=== PATIENT | male | born 1980 | race Caucasian/White ===

== ENCOUNTER 2017-11-30 02:13 | Emergency (ER) | payer OTHER ==
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
[2017-11-30 09:11] VITALS: BP 117/67
--- NOTE | 2017-11-30 10:19 | ED ---
Tano Fowler Simon, scribed for Flash Luther MD on 11/30/17 at 0823 . Progress - Progress Note Progress Note: This patient was signed out from Dr. Alvarez, pending disposition, awaiting a visit from his social security benefits interviewer. The patients condition is stable and will be discharged to home with Dx of weakness. Course/Dx - Course Course Of Treatment: Mr. Thomas was seen by the Geophysical Party Chief and the recommendation was to D/C him to go to the [facility] today for emergency placement. He was stable. - Diagnoses Provider Diagnoses: Weakness Discharge - Sign-Out/Discharge Documenting (check all that apply): Discharge/Admit/Transfer - Discharge Plan Condition: Stable Disposition: HOME Patient Education Materials: Weakness (ED) Referrals: Carlos May MD [Primary Care Provider] - Additional Instructions: Go to older adult social work specialist today to arrange for emergency senior care. RETURN TO EMERGENCY DEPARTMENT FOR CHANGING OR WORSENING SYMPTOMS. - Billing Disposition and Condition Condition: STABLE Disposition: Home The documentation as recorded by the Tano land Simon accurately reflects the service I personally performed and the decisions made by me, Flash Luther MD.
== END 2017-11-30 09:10 | disposition home or self-care (01) ==
LOC: ED 02:13
DX: R53.1 Weakness (principal); F17.200 Nicotine dependence, unspecified, uncomplicated; F41.9 Anxiety disorder, unspecified; H54.62 Unqualified visual loss, left eye, normal vision right eye; Z59.0 Homelessness; Z79.899 Other long term (current) drug therapy
CPT/HCPCS: 99282

== ENCOUNTER 2017-11-30 16:05 | Emergency (ER) | payer OTHER ==
[2017-11-30 18:15] LABS: ABS Basophils 0.1 10^3/ul (0-0.2); ABS Eosinophils 0.2 10^3/ul (0-0.6); ABS Lymphocytes 1.4 10^3/ul (1.0-4.8); ABS Monocytes 0.6 10^3/ul (0-0.8); ABS Nucleated RBC 0 10^3/ul; Eosinophil % 1.9 % (0-6); Hematocrit 39 % (42-52); Hemoglobin 13.2 g/dl (14.0-18.0); Lymphocyte % 16.9 % (25-47); Mean Corpuscular HGB Conc 34 g/dl (31-36); Mean Corpuscular Hemoglobin 30 pg (27-31); Mean Corpuscular Volume 88 fL (80-94); Mean Platelet Volume 7.6 um3 (7.4-10.4); Nucleated Red Blood Cells % 0.2; Platelet Count 225 10^3/ul (150-450); Red Blood Count 4.44 10^6/ul (4.00-5.40); Red Cell Distribution Width 13 % (10.5-15); White Blood Count 8.3 10^3/ul (3.5-10.8)
[2017-11-30 18:20] LABS: Urine Appearance Clear; Urine Blood Negative (Negative); Urine Color Yellow; Urine Ketones Trace (Negative); Urine Protein Negative (Negative); Urine Urobilinogen Negative (Negative)
[2017-11-30 18:32] LABS: EGFR Non-African American 120.4 (>60)
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
[2017-11-30 22:19] VITALS: BP 101/58
--- NOTE | 2017-12-01 19:47 | ED ---
Karyn Fowler Elizabeth, scribed for Gerald Tapia MD on 11/30/17 at 2208 . Progress - Progress Note Progress Note: Patient was signed out to Dr. Tapia from Dr. Luther upon physician shift change pending medical clearance. Re-Evaluation - Re-Evaluation First Eval Change: Improved Comment: Pt now more awake and alert; Pt following commands appropriately. Pt with no drowsiness or attention deficits. Pt ambulatory in the ED without diffiuclty or ataxia. Pt states that his care plan was for him to stay with a friend, which he has arranged, until other temporary/emergent housing is completed. Course/Dx - Course Course Of Treatment: Mr. Thomas presented by EMS. He was at a probation meeting and kept falling asleep. He was very sleepy he was arousable essentially a mild stupor. He is currently getting a workup he does take Opana, morphine and a benzodiazepine routinely. Patient has been medically cleared and will be discharged to stay with a friend. Patient is agreeable with this plan. - Diagnoses Provider Diagnoses: Accidental medication overdose Discharge - Sign-Out/Discharge Documenting (check all that apply): Discharge/Admit/Transfer Receiving patient FROM: Flash Luther - Discharge Plan Condition: Stable Disposition: HOME Discharge Disposition Comment: Received sign out from Dr. Luther. Discharge patient home Patient Education Materials: Adult Overdose (ED) Referrals: Carlos May MD [Primary Care Provider] - 2 Days Additional Instructions: Follow up with your primary care physician in 2-3 days. Return to the emergency department with any new or worsening symptoms. - Billing Disposition and Condition Condition: STABLE Disposition: Home The documentation as recorded by the Karyn land Elizabeth accurately reflects the service I personally performed and the decisions made by , Gerald Tapia MD.
== END 2017-11-30 22:20 | disposition home or self-care (01) ==
LOC: ED 16:05
DX: T50.901A Poisoning by unspecified drugs, medicaments and biological substances, accidental (unintentional), initial encounter (principal); R40.1 Stupor; Y92.9 Unspecified place or not applicable; F17.210 Nicotine dependence, cigarettes, uncomplicated; R47.81 Slurred speech
CPT/HCPCS: 36415; 80053; 80307; 80320; 80329; 81003; 83605; 85025; 93005; 99283; G0480

== ENCOUNTER 2018-01-29 16:49 | Emergency (ER) | payer OTHER ==
[2018-01-29 17:06] VITALS: BP 118/89
[2018-01-29] MEDS ORDERED: Ketorolac INJ* 60 MG/2 ML VIAL IM ONE (20:25)
[2018-01-29] MEDS ORDERED: oxyCODONE/Acetamin 5/325 MG* TAB PO ONE (20:25)
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
[2018-01-29] MEDS ORDERED: Ciprofloxacin 0.3% OPTH.SOL* 2.5 ML BTL LEFT EYE SCH (22:00)
== END 2018-01-29 21:13 | disposition home or self-care (01) ==
LOC: ED 16:49
DX: G89.29 Other chronic pain (principal); M79.605 Pain in left leg; H10.9 Unspecified conjunctivitis; F17.200 Nicotine dependence, unspecified, uncomplicated; Z97.0 Presence of artificial eye
CPT/HCPCS: 96372; 99282; A9270-GY; J1885

== ENCOUNTER 2018-02-21 08:55 | Emergency (ER) | payer OTHER ==
[2018-02-21] MEDS ORDERED: NS 0.9% 1000 ML* 1,000 ML IV ONE (09:12)
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
[2018-02-21 09:52] LABS: ABS Basophils 0.1 10^3/ul (0-0.2); ABS Eosinophils 0.2 10^3/ul (0-0.6); ABS Lymphocytes 2.2 10^3/ul (1.0-4.8); ABS Monocytes 0.8 10^3/ul (0-0.8); ABS Neutrophils 5.4 10^3/ul (1.5-7.7); ABS Nucleated RBC 0 10^3/ul; Eosinophil % 1.7 % (0-6); Hematocrit 42 % (42-52); Hemoglobin 14.2 g/dl (14.0-18.0); Lymphocyte % 24.9 % (25-47); Mean Corpuscular HGB Conc 34 g/dl (31-36); Mean Corpuscular Hemoglobin 29 pg (27-31); Mean Corpuscular Volume 87 fL (80-94); Nucleated Red Blood Cells % 0; Platelet Count 428 10^3/ul (150-450); Red Blood Count 4.83 10^6/ul (4.00-5.40); Red Cell Distribution Width 15 % (10.5-15); White Blood Count 8.7 10^3/ul (3.5-10.8)
[2018-02-21 10:09] LABS: EGFR Non-African American 141.5 (>60)
[2018-02-21] MEDS ORDERED: Magnesium Oxide TAB* 400 MG PO ONE (10:29)
[2018-02-21 10:45] LABS: Urine Appearance Clear; Urine Blood Negative (Negative); Urine Color Yellow; Urine Ketones Negative (Negative); Urine Protein Negative (Negative); Urine Specific Gravity 1.024 (1.010-1.030); Urine Urobilinogen Negative (Negative)
--- NOTE | 2018-02-21 12:37 | RAD ---
HISTORY: Syncope COMPARISONS: April 12, 2015 , MRI dated March 06, 2015 TECHNIQUE: Multiple contiguous axial CT scans were obtained of the head without intravenous contrast. FINDINGS: HEMORRHAGE/INFARCT: There is no hemorrhage or acute infarct. MASSES/SHIFT: There is no mass or shift. EXTRA-AXIAL SPACES: There are no extra-axial fluid collections. SULCI AND VENTRICLES: The sulci and ventricles are normal in size and position for the patient's stated age. 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 This corresponds to the finding noted on previous MRI. BRAINSTEM: There are no focal parenchymal abnormalities. CEREBELLUM: There are no focal parenchymal abnormalities. VESSELS: The vessels are grossly normal. PARANASAL SINUSES: The paranasal sinuses are clear. ORBITS: The orbits are unremarkable. BONES AND SOFT TISSUE: No bone or soft tissue abnormalities are noted. OTHER: None IMPRESSION: NO ACUTE INTRACRANIAL PATHOLOGY. STABLE RIGHT FRONTAL ENCEPHALOMALACIA
--- NOTE | 2018-02-21 13:00 | RAD ---
Indication: Neck injury, syncope. CT of the cervical spine was obtained in the axial plane. Sagittal and coronal reconstructed images were obtained. The skull base demonstrates no evidence of fracture. Mastoid air cells are well aerated. The atlantoaxial joint is unremarkable. The vertebral bodies appear normal in height. Disc spaces all well-preserved. No focal protrusion is identified. The inferior thyroid lobes are unremarkable. No fracture is noted. IMPRESSION: No fracture of the cervical spine is noted.
[2018-02-21 13:27] VITALS: BP 127/99
--- NOTE | 2018-02-21 13:38 | RAD ---
HISTORY: Syncope COMPARISONS: March 30, 2016 VIEWS: 5: Frontal dual-energy and lateral views of the chest. FINDINGS: CARDIOMEDIASTINAL SILHOUETTE: The cardiomediastinal silhouette is normal. CALIXTO: The calixto are normal. PLEURA: The costophrenic angles are sharp. No pleural abnormalities are noted. LUNG PARENCHYMA: There is hyperinflation with flattening of the diaphragm and expansion of the AP diameter of the chest. ABDOMEN: The upper abdomen is clear. There is no subphrenic gas. BONES AND SOFT TISSUES: No bone or soft tissue abnormalities are noted. OTHER: None. IMPRESSION: HYPERINFLATION. NO ACTIVE CARDIOPULMONARY DISEASE.
== END 2018-02-21 13:25 | disposition home or self-care (01) ==
LOC: ED 08:55
DX: R55 Syncope and collapse (principal); R51 Headache; M54.2 Cervicalgia; F17.210 Nicotine dependence, cigarettes, uncomplicated
CPT/HCPCS: 36415; 70450; 71046; 72125; 80053; 80307; 80320; 81003; 83605; 83735; 83880; 84443; 84484; 85025; 93005; 96374; 99283; G0480

== ENCOUNTER 2018-03-27 18:23 | Emergency (ER) | payer OTHER ==
[2018-03-27 18:54] VITALS: BP 109/84
== END 2018-03-27 19:46 | disposition left against medical advice (07) ==
LOC: ED 18:23
DX: R41.82 Altered mental status, unspecified (principal); Z53.21 Procedure and treatment not carried out due to patient leaving prior to being seen by health care provider

== ENCOUNTER 2018-03-28 18:06 | Emergency (ER) | payer OTHER ==
[2018-03-28 18:15] VITALS: BP 102/73
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
== END 2018-03-28 19:36 | disposition home or self-care (01) ==
LOC: UCEAST 18:06
DX: F41.9 Anxiety disorder, unspecified (principal); Z76.0 Encounter for issue of repeat prescription; Z91.013 Allergy to seafood; F17.210 Nicotine dependence, cigarettes, uncomplicated
CPT/HCPCS: 99211; G0463

== ENCOUNTER 2018-03-28 21:56 | Emergency (ER) | payer OTHER ==
[2018-03-29] MEDS ORDERED: oxyCODONE TAB* 5 MG TAB PO ONE (01:53)
[2018-03-29] MEDS ORDERED: ALPRAZolam TAB* 0.5 MG PO ONE (01:53)
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
[2018-03-29 02:41] VITALS: BP 119/97
== END 2018-03-29 02:41 | disposition home or self-care (01) ==
LOC: ED 21:56
DX: Z76.0 Encounter for issue of repeat prescription (principal); F17.210 Nicotine dependence, cigarettes, uncomplicated; F41.9 Anxiety disorder, unspecified
CPT/HCPCS: 99282; A9270-GY

== ENCOUNTER 2018-06-17 00:30 | Inpatient (IN) | payer OTHER ==
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
[2018-06-17 01:07] LABS: ABS Basophils 0.1 10^3/ul (0-0.2); ABS Eosinophils 0.1 10^3/ul (0-0.6); ABS Lymphocytes 1.7 10^3/ul (1.0-4.8); ABS Monocytes 0.5 10^3/ul (0-0.8); ABS Neutrophils 6.2 10^3/ul (1.5-7.7); ABS Nucleated RBC 0 10^3/ul; Hematocrit 43 % (42-52); Hemoglobin 14.4 g/dl (14.0-18.0); Lymphocyte % 19.7 %; Mean Corpuscular HGB Conc 34 g/dl (31-36); Mean Corpuscular Hemoglobin 29 pg (27-31); Mean Corpuscular Volume 88 fL (80-94); Mean Platelet Volume 7.4 fL (7.4-10.4); Nucleated Red Blood Cells % 0; Platelet Count 316 10^3/ul (150-450); Red Cell Distribution Width 15 % (10.5-15); White Blood Count 8.5 10^3/ul (3.5-10.8)
[2018-06-17 01:23] LABS: ALT 8 U/L (7-52); AST 15 U/L (13-39); Albumin 4.2 g/dL (3.2-5.2); Albumin/Globulin Ratio 1.3 (1-3); Alkaline Phosphatase 44 U/L (34-104); Anion Gap 6 mmol/L (2-11); BUN/Creatinine Ratio 16.1 (8-20); Blood Urea Nitrogen 10 mg/dL (6-24); CO2 Carbon Dioxide 27 mmol/L (22-32); Calcium 9.5 mg/dL (8.6-10.3); Chloride 108 mmol/L (101-111); EGFR Non-African American 146.8 (>60); Globulin 3.3 g/dL (2-4); Glucose 121 mg/dL (70-100); Potassium 3.4 mmol/L (3.5-5.0); Sodium 141 mmol/L (135-145); Total Protein 7.5 g/dL (6.4-8.9)
[2018-06-17 01:31] LABS: Alcohol < 10 mg/dL (<10); Salicylate < 2.50 mg/dL (<30)
[2018-06-17 01:42] LABS: Urine Appearance Cloudy; Urine Bilirubin Negative (Negative); Urine Blood Negative (Negative); Urine Color Amber; Urine Glucose Negative (Negative); Urine Ketones Negative (Negative); Urine Nitrite Negative (Negative); Urine Protein Negative (Negative); Urine Specific Gravity 1.025 (1.010-1.030); Urine Urobilinogen Positive (Negative)
[2018-06-17 01:55] LABS: Acetaminophen < 15 mcg/mL
[2018-06-17 01:57] LABS: Barbiturates Urine Screen None Detected (None Detect); Benzodiazepine Urine Screen None Detected (None Detect); Urine Cannabinoids Screen None Detected (None Detect)
[2018-06-17] MEDS ORDERED: Mouth Piece, Nicotine* 1 EACH CARTRIDGE INH ONE (02:00)
[2018-06-17] MEDS: Nicotine Inhaler* 10 MG AMP INH PRN ×3 (02:07→21:47)
[2018-06-17] MEDS: LORazepam TAB(*) 1 MG PO PRN ×4 (02:07→17:47)
[2018-06-17] MEDS ORDERED: oxyCODONE TAB* 5 MG TAB PO ONE (02:14)
[2018-06-17] MEDS ORDERED: Nicotine GUM* 2 MG PO PRN (07:42)
[2018-06-17] MEDS ORDERED: Al Hydrox/Mg Hydrox/Simet LIQ* 30 ML UDC PO PRN (07:42)
[2018-06-17] MEDS: Vitamin THERAPEUTIC TAB PO SCH (08:02)
[2018-06-17] MEDS: clonazePAM TAB(*) 0.5 MG PO SCH ×2 (08:02→20:53)
[2018-06-17] MEDS: OXYMORPHONE 20 MG PO SCH ×2 (10:00→20:53)
[2018-06-17] MEDS: Oxymorphone IR (NF) 5 MG TAB PO SCH ×3 (10:00→20:53)
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
[2018-06-17] MEDS: DULoxetine DR CAP* 30 MG CAP.DR PO SCH (21:31)
[2018-06-18 07:27] LABS: HDL Cholesterol 46.3 mg/dL
[2018-06-18] MEDS ORDERED: Mouth Piece, Nicotine* 1 EACH CARTRIDGE ONE (07:44)
[2018-06-18] MEDS: Nicotine Inhaler* 10 MG AMP INH PRN ×3 (07:45→20:32)
[2018-06-18] MEDS: DULoxetine DR CAP* 30 MG CAP.DR PO SCH (08:58)
[2018-06-18] MEDS: clonazePAM TAB(*) 0.5 MG PO SCH ×2 (08:58→20:30)
[2018-06-18] MEDS: OXYMORPHONE 20 MG PO SCH ×2 (08:58→20:30)
[2018-06-18] MEDS: Vitamin THERAPEUTIC TAB PO SCH (08:59)
--- NOTE | 2018-06-18 17:15 | PN ---
Subjective - Subjective Date of Service: 06/18/18 Service Type: 56397 Hosp care 25 min moderate complexity Subjective: Mr Thomas complains today of increased pain and anxiety after replacement ment of Xanax 1 mg 3x/d with Klonopin 0.5 mg 2x/d, and reduction of oxymorphone dose from 10 mg 3x/d of IR, 20 mg 2x/d of ER. He reports continued depressed mood, but no longer plans to kill himself. He is pleasant and well related. Objective - Appearance Appearance: Thin Framed Dysmorphic Features: Yes Hygiene: Normal Grooming: Fairly Well Kept - Behavior Psychomotor Activities: Normal Exhibits Abnormal Movement: No - Attitude and Relatedness Attitude and Relatedness: Cooperative Eye Contact: Good - Speech Quality: Unpressured Latencies: Normal Quantity: Appropriate - Mood Patient's Decription of Mood: "Anxious" - Affect Observed Affect: Fair Affect Consistent with: Dysphoria - Thought Process Patient's Thought Process: Coherent, Goal Directed Thought Content: Yes Passive Wish, No Suicidal Planning, No Homicidal Ideation, No Paranoid Ideation - Sensorium Experiencing Hallucinations: No, Sensorium is Clear - Level of Consciousness Level of Consciousness: Alert Orientation: Yes Intact, Yes Orientated to Time, Yes Orientated to Place, Yes Orientated to Person - Impulse Control Impulse Control: Intact - Insight and Judgement Insight and Judgement: Fair - Group Participation Particating in Group Activities: No - Medication Management Medication Management Adherence: Yes Assessment - Assessment Merits Inpatient Hospitalization: For Immediate Safety, For Stabilization, For Discharge Planning, Pending Safe DC Plan Inpatient DSM-V Dx: F33.2 Clinical Impression: Mr Thomas is a 38 year-old man admitted for safety, assessment and treatment after attempting suicide by cutting his wrists. He has a chronic pain disorder and is on opiate pain medications in addition to benzodiazepines against anxiety. He is also starting a trial of duloxetine against depression, anxiety and pain. Plan - Plan Treatment Plan: Name: JOHNNIE THOMAS Birthdate: 1980 [id number] Continue current meds with additional 0.5 mg daily dose of Klonopin against c/o continued anxiety, partial return of IR oxymorphone as PRN against breakthrough pain. Encourage groups and milieu. Plan for aftercare via [facility]. Medications: Current Medications Acetaminophen (Tylenol Tab*) 650 mg PO Q4H PRN PRN Reason: PAIN or TEMP > 101 F Al Hydrox/Mg Hydrox/Simethicone (Maalox Plus*) 30 ml PO Q4H PRN PRN Reason: INDIGESTION Clonazepam (Klonopin Tab(*)) 0.5 mg PO BID [facility] Last Admin: 06/18/18 08:58 Dose: 0.5 mg Duloxetine HCl (Cymbalta Cap*) 30 mg PO DAILY [facility] Last Admin: 06/18/18 08:58 Dose: 30 mg Multivitamins (Theragran Tab*) 1 tab PO DAILY [facility] Last Admin: 06/18/18 08:59 Dose: 1 tab Nicotine (Nicotine Inhaler*) 10 mg INH Q2H PRN PRN Reason: CRAVING Last Admin: 06/18/18 13:42 Dose: 10 mg Nicotine Polacrilex (Nicotine Gum*) 2 mg PO Q2H PRN PRN Reason: CRAVING Oxymorphone HCl (Oxymorphone Hcl Er) 20 mg PO BID [facility] Last Admin: 06/18/18 08:58 Dose: 20 mg - Discharge Plan Discharge Plan: Outpatient Follow Up Outpatient Program: [facility]
[2018-06-18] MEDS: Oxymorphone IR (NF) 5 MG TAB PO PRN ×2 (17:35→23:21)
[2018-06-19] MEDS: Acetaminophen TAB* 325 MG PO PRN ×2 (01:00→17:36)
[2018-06-19] MEDS: Oxymorphone IR (NF) 5 MG TAB PO PRN ×4 (05:32→23:30)
[2018-06-19] MEDS: clonazePAM TAB(*) 0.5 MG PO SCH ×3 (09:05→21:15)
[2018-06-19] MEDS: OXYMORPHONE 20 MG PO SCH ×2 (09:05→21:15)
[2018-06-19] MEDS: DULoxetine DR CAP* 30 MG CAP.DR PO SCH (09:06)
[2018-06-19] MEDS: Vitamin THERAPEUTIC TAB PO SCH (09:08)
[2018-06-19] MEDS: Nicotine Inhaler* 10 MG AMP INH PRN (11:26)
--- NOTE | 2018-06-19 15:31 | PN ---
Subjective - Subjective Date of Service: 06/19/18 Service Type: 82212 Hosp care 15 min low complexity Subjective: Other than chronic pain 01/26 Johnnie denies any psychiatric problems. Also denies any SI or HI. Mostly in the day area engaged with peers. Objective - Appearance Appearance: Thin Framed Dysmorphic Features: No Hygiene: Normal Grooming: Well Kept - Behavior Psychomotor Activities: Normal Exhibits Abnormal Movement: No - Attitude and Relatedness Attitude and Relatedness: Appropriate Eye Contact: Good - Speech Quality: Unpressured Latencies: Normal Quantity: Appropriate - Mood Patient's Decription of Mood: "Okay" - Affect Observed Affect: Fair Affect Consistent with: Dysphoria - Thought Process Patient's Thought Process: Coherent, Goal Directed Thought Content: No Passive Wish, No Suicidal Planning, No Homicidal Ideation, No Paranoid Ideation - Sensorium Experiencing Hallucinations: No, Sensorium is Clear Type of Hallucinations: Visual: No, Auditory: No, Command: No - Level of Consciousness Level of Consciousness: Alert Orientation: Yes Intact, Yes Orientated to Time, Yes Orientated to Place, Yes Orientated to Person - Impulse Control Impulse Control: Intact - Insight and Judgement Insight and Judgement: Fair - Group Participation Particating in Group Activities: Yes - Medication Management Medication Management Adherence: Yes Assessment - Assessment Merits Inpatient Hospitalization: Consolidate Improvements, Pending Safe DC Plan Inpatient DSM-V Dx: F33.2 Clinical Impression: Mr Thomas is a 38 year-old man admitted for safety, assessment and treatment after attempting suicide by cutting his wrists. He has a chronic pain disorder and is on opiate pain medications in addition to benzodiazepines against anxiety. He is also starting a trial of duloxetine against depression, anxiety and pain. Plan - Plan Treatment Plan: Name: JOHNNIE THOMAS Birthdate: 1980 [id number] Continue current meds with additional 0.5 mg daily dose of Klonopin against c/o continued anxiety, partial return of IR oxymorphone as PRN against breakthrough pain. Encourage groups and milieu. Plan for aftercare via [facility]. Continued Medication Management: Continue Outpt Medication Medications: Current Medications Acetaminophen (Tylenol Tab*) 650 mg PO Q4H PRN PRN Reason: PAIN or TEMP > 101 F Last Admin: 06/19/18 01:00 Dose: 650 mg Al Hydrox/Mg Hydrox/Simethicone (Maalox Plus*) 30 ml PO Q4H PRN PRN Reason: INDIGESTION Clonazepam (Klonopin Tab(*)) 0.5 mg PO TID [facility] Last Admin: 06/19/18 13:54 Dose: 0.5 mg Duloxetine HCl (Cymbalta Cap*) 30 mg PO DAILY [facility] Last Admin: 06/19/18 09:06 Dose: 30 mg Multivitamins (Theragran Tab*) 1 tab PO DAILY [facility] Last Admin: 06/19/18 09:08 Dose: 1 tab Nicotine (Nicotine Inhaler*) 10 mg INH Q2H PRN PRN Reason: CRAVING Last Admin: 06/19/18 11:26 Dose: 10 mg Nicotine Polacrilex (Nicotine Gum*) 2 mg PO Q2H PRN PRN Reason: CRAVING Oxymorphone HCl (Oxymorphone Hcl Er) 20 mg PO BID [facility] Last Admin: 06/19/18 09:05 Dose: 20 mg Oxymorphone HCl (Opana Ir (Nf)) 5 mg PO Q6H PRN PRN Reason: PAIN Last Admin: 06/19/18 11:26 Dose: 5 mg - Discharge Plan Discharge Plan: Outpatient Follow Up Outpatient Program: [facility]
[2018-06-20] MEDS: Oxymorphone IR (NF) 5 MG TAB PO PRN ×4 (06:15→22:01)
[2018-06-20] MEDS: OXYMORPHONE 20 MG PO SCH ×2 (07:05→20:58)
[2018-06-20] MEDS: clonazePAM TAB(*) 0.5 MG PO SCH ×3 (09:53→20:58)
[2018-06-20] MEDS: Vitamin THERAPEUTIC TAB PO SCH (09:53)
[2018-06-20] MEDS: DULoxetine DR CAP* 60 MG CAP.DR PO SCH (09:53)
--- NOTE | 2018-06-20 10:37 | PN ---
Subjective - Subjective Date of Service: 06/20/18 Service Type: 60145 Hosp care 15 min low complexity Subjective: Patient reports anxiety r/t psychosocial stressors. He denies side effects or response from duloxetine. Patient reports poor sleep for the past 2-3 days. He reports trials of trazodone and ambien resulting in restless legs. He agrees to trial mirtazapine for sleep and appetite. Objective - Appearance Appearance: Thin Framed Dysmorphic Features: No Hygiene: Normal Grooming: Fairly Well Kept - Behavior Psychomotor Activities: Normal Exhibits Abnormal Movement: No - Attitude and Relatedness Attitude and Relatedness: Cooperative Eye Contact: Good - Speech Quality: Unpressured Latencies: Normal Quantity: Appropriate - Mood Patient's Decription of Mood: "Okay" - Affect Observed Affect: Good Affect Consistent with: Euthymia - Thought Process Patient's Thought Process: Coherent, Goal Directed Thought Content: No Passive Wish, No Suicidal Planning, No Homicidal Ideation, No Paranoid Ideation - Sensorium Experiencing Hallucinations: No, Sensorium is Clear Type of Hallucinations: Visual: No, Auditory: No, Command: No - Level of Consciousness Level of Consciousness: Alert Orientation: Yes Intact, Yes Orientated to Time, Yes Orientated to Place, Yes Orientated to Person - Impulse Control Impulse Control: Intact - Insight and Judgement Insight and Judgement: Good - Group Participation Particating in Group Activities: Yes - Medication Management Medication Management Adherence: Yes Assessment - Assessment Merits Inpatient Hospitalization: For Immediate Safety, For Discharge Planning Inpatient DSM-V Dx: F33.2 Clinical Impression: Mr Thomas is a 38 year-old man admitted for safety, assessment and treatment after attempting suicide by cutting his wrists. He has a chronic pain disorder and is on opiate pain medications in addition to benzodiazepines against anxiety. He is also starting a trial of duloxetine against depression, anxiety and pain. Plan - Plan Treatment Plan: Name: JOHNNIE THOMAS Birthdate: 1980 [id number] Continue acute intensive psychiatric treatment. May decrease to q30min obs and allow staff pass. add mirtazapine to assist with sleep and appetite. add tobradex eye gtts per patient request. consider eye patch at bedtime. discharge planning to include outpatient providers. Continued Medication Management: Start Medication Medications: Current Medications Acetaminophen (Tylenol Tab*) 650 mg PO Q4H PRN PRN Reason: PAIN or TEMP > 101 F Last Admin: 06/19/18 17:36 Dose: 650 mg Al Hydrox/Mg Hydrox/Simethicone (Maalox Plus*) 30 ml PO Q4H PRN PRN Reason: INDIGESTION Clonazepam (Klonopin Tab(*)) 0.5 mg PO TID [facility] Last Admin: 06/20/18 09:53 Dose: 0.5 mg Clonazepam (Klonopin Tab(*)) 0.5 mg PO BEDTIME DARIO Duloxetine HCl (Cymbalta Cap*) 60 mg PO DAILY [facility] Last Admin: 06/20/18 09:53 Dose: 60 mg Mirtazapine (Remeron Tab*) 15 mg PO BEDTIME [facility] Multivitamins (Theragran Tab*) 1 tab PO DAILY [facility] Last Admin: 06/20/18 09:53 Dose: 1 tab Nicotine (Nicotine Inhaler*) 10 mg INH Q2H PRN PRN Reason: CRAVING Last Admin: 06/19/18 11:26 Dose: 10 mg Nicotine Polacrilex (Nicotine Gum*) 2 mg PO Q2H PRN PRN Reason: CRAVING Oxymorphone HCl (Oxymorphone Hcl Er) 20 mg PO BID [facility] Last Admin: 06/20/18 07:05 Dose: 20 mg Oxymorphone HCl (Opana Ir (Nf)) 10 mg PO TID PRN PRN Reason: PAIN - Discharge Plan Discharge Plan: Outpatient Follow Up Outpatient Program: [facility]
[2018-06-20] MEDS: Nicotine Inhaler* 10 MG AMP INH PRN ×2 (11:56→19:39)
[2018-06-20] MEDS: Tobramycin/Dexameth OPTH.SUSP* 2.5 M L BTL LEFT EYE SCH ×4 (14:00→22:00)
[2018-06-20] MEDS ORDERED: clonazePAM TAB(*) 0.5 MG PO SCH (21:00)
[2018-06-20] MEDS ORDERED: Mirtazapine TAB* 15 MG PO SCH (21:00)
[2018-06-21] MEDS: Oxymorphone IR (NF) 5 MG TAB PO PRN ×3 (02:42→13:45)
[2018-06-21] MEDS: Tobramycin/Dexameth OPTH.SUSP* 2.5 M L BTL LEFT EYE SCH ×3 (02:43→13:46)
[2018-06-21] MEDS: DULoxetine DR CAP* 60 MG CAP.DR PO SCH (07:45)
[2018-06-21] MEDS: OXYMORPHONE 20 MG PO SCH (07:45)
[2018-06-21] MEDS: clonazePAM TAB(*) 0.5 MG PO SCH ×2 (07:45→13:45)
[2018-06-21] MEDS: Vitamin THERAPEUTIC TAB PO SCH (07:45)
[2018-06-21 08:36] VITALS: BP 100/77
== END 2018-06-21 14:15 | disposition home or self-care (01) | DRG 751 ==
LOC: ED 00:30 → BSU 05:31
PROVIDERS: ADMIT Psychiatry & Neurology Psychiatry; ATTEND Psychiatry & Neurology Psychiatry
PROC: 0HQEXZZ Repair Left Lower Arm Skin, External Approach (ICD-10-PCS; principal; 2018-06-17)
PROC: 0HQDXZZ Repair Right Lower Arm Skin, External Approach (ICD-10-PCS; 2018-06-17)
DX: F33.2 Major depressive disorder, recurrent severe without psychotic features (principal); G47.30 Sleep apnea, unspecified; H54.62 Unqualified visual loss, left eye, normal vision right eye; G43.909 Migraine, unspecified, not intractable, without status migrainosus; F41.9 Anxiety disorder, unspecified; F17.210 Nicotine dependence, cigarettes, uncomplicated; S51.812A Laceration without foreign body of left forearm, initial encounter; G89.4 Chronic pain syndrome; S51.811A Laceration without foreign body of right forearm, initial encounter; X78.9XXA Intentional self-harm by unspecified sharp object, initial encounter; Y92.009 Unspecified place in unspecified non-institutional (private) residence as the place of occurrence of the external cause; Z87.820 Personal history of traumatic brain injury; Z83.3 Family history of diabetes mellitus; Z91.013 Allergy to seafood; Z80.41 Family history of malignant neoplasm of ovary
CPT/HCPCS: 36415; 80053; 80061; 80307; 80320; 80329; 81003; 83036; 84443; 85025; 99222; 99231; 99232; 99238; 99284; A9270-GY; G0480

== ENCOUNTER 2018-07-24 00:09 | Emergency (ER) | payer OTHER ==
[2018-07-24] MEDS ORDERED: Naloxone* 0.4 MG/ML 1 ML VIAL IV PUSH ONE (00:27)
[2018-07-24] MEDS ORDERED: NS 0.9% 1000 ML** 1,000 ML IV ONE (00:27)
[2018-07-24 00:46] LABS: ABS Basophils 0.1 10^3/ul (0-0.2); ABS Eosinophils 0.2 10^3/ul (0-0.6); ABS Lymphocytes 2.6 10^3/ul (1.0-4.8); ABS Monocytes 0.4 10^3/ul (0-0.8); ABS Neutrophils 2.7 10^3/ul (1.5-7.7); ABS Nucleated RBC 0 10^3/ul; Eosinophil % 3.4 %; Hematocrit 39 % (42-52); Hemoglobin 12.8 g/dl (14.0-18.0); Lymphocyte % 43.4 %; Mean Corpuscular HGB Conc 33 g/dl (31-36); Mean Corpuscular Hemoglobin 29 pg (27-31); Mean Corpuscular Volume 88 fL (80-94); Mean Platelet Volume 6.7 fL (7.4-10.4); Nucleated Red Blood Cells % 0; Platelet Count 375 10^3/ul (150-450); Red Blood Count 4.39 10^6/ul (4.00-5.40); Red Cell Distribution Width 15 % (10.5-15); White Blood Count 5.9 10^3/ul (3.5-10.8)
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
[2018-07-24 01:02] LABS: ALT 10 U/L (7-52); AST 18 U/L (13-39); Albumin 4.4 g/dL (3.2-5.2); Albumin/Globulin Ratio 1.4 (1-3); Alkaline Phosphatase 49 U/L (34-104); Anion Gap 6 mmol/L (2-11); BUN/Creatinine Ratio 11.5 (8-20); Blood Urea Nitrogen 10 mg/dL (6-24); CO2 Carbon Dioxide 33 mmol/L (22-32); Calcium 9.6 mg/dL (8.6-10.3); Chloride 98 mmol/L (101-111); Creatine Kinase 97 U/L (10-223); EGFR African American 120.1 (>60); EGFR Non-African American 99.3 (>60); Globulin 3.1 g/dL (2-4); Glucose 88 mg/dL (70-100); Potassium 3.5 mmol/L (3.5-5.0); Sodium 137 mmol/L (135-145); Total Protein 7.5 g/dL (6.4-8.9)
[2018-07-24 01:25] LABS: Acetaminophen < 15 mcg/mL; Alcohol < 10 mg/dL (<10); Salicylate < 2.50 mg/dL (<30)
[2018-07-24 03:29] LABS: Urine Appearance Clear; Urine Bilirubin Negative (Negative); Urine Blood Negative (Negative); Urine Color Yellow; Urine Glucose Negative (Negative); Urine Ketones Negative (Negative); Urine Nitrite Negative (Negative); Urine Protein Negative (Negative); Urine Specific Gravity 1.004 (1.010-1.030); Urine Urobilinogen Negative (Negative)
[2018-07-24 03:56] LABS: Barbiturates Urine Screen None Detected (None Detect); Benzodiazepine Urine Screen Presumptive Positive (None Detect); Urine Cannabinoids Screen None Detected (None Detect)
[2018-07-24 04:53] VITALS: BP 113/88
== END 2018-07-24 04:52 | disposition home or self-care (01) ==
LOC: ED 00:09
DX: F11.10 Opioid abuse, uncomplicated (principal); R53.83 Other fatigue; R00.1 Bradycardia, unspecified; Z91.013 Allergy to seafood; F17.210 Nicotine dependence, cigarettes, uncomplicated
CPT/HCPCS: 36415; 70450; 80053; 80307; 80320; 80329; 81003; 82550; 83605; 85025; 93005; 96374; 99283; G0480; J2310

== ENCOUNTER 2018-07-24 19:48 | Emergency (ER) | payer OTHER ==
[2018-07-24] MEDS ORDERED: LORazepam TAB(*) 1 MG PO ONE (21:44)
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
[2018-07-24 22:08] VITALS: BP 129/70
== END 2018-07-24 22:07 | disposition home or self-care (01) ==
LOC: ED 19:48
DX: Z76.0 Encounter for issue of repeat prescription (principal); G89.29 Other chronic pain; F17.210 Nicotine dependence, cigarettes, uncomplicated
CPT/HCPCS: 99282; A9270-GY

== ENCOUNTER 2018-07-26 19:44 | Emergency (ER) | payer OTHER ==
[2018-07-26] MEDS ORDERED: Acetaminophen TAB* 325 MG PO ONE (20:48)
[2018-07-26] MEDS ORDERED: LORazepam INJ* 2 MG/ML 1 ML VIAL IV ONE (20:48)
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
[2018-07-26] MEDS ORDERED: LORazepam TAB(*) 1 MG PO ONE (20:58)
[2018-07-26] MEDS ORDERED: Nicotine Inhaler* 10 MG AMP INH PRN (21:50)
[2018-07-26] MEDS ORDERED: Mouth Piece, Nicotine* 1 EACH CARTRIDGE INH PRN (21:52)
[2018-07-26 22:16] LABS: ABS Basophils 0 10^3/ul (0-0.2); ABS Eosinophils 0 10^3/ul (0-0.6); ABS Lymphocytes 0.5 10^3/ul (1.0-4.8); ABS Monocytes 0.1 10^3/ul (0-0.8); ABS Neutrophils 8.1 10^3/ul (1.5-7.7); ABS Nucleated RBC 0 10^3/ul; Eosinophil % 0.3 %; Hematocrit 43 % (42-52); Hemoglobin 14.2 g/dl (14.0-18.0); Lymphocyte % 5.9 %; Mean Corpuscular HGB Conc 33 g/dl (31-36); Mean Corpuscular Hemoglobin 29 pg (27-31); Mean Corpuscular Volume 89 fL (80-94); Nucleated Red Blood Cells % 0; Platelet Count 310 10^3/ul (150-450); Red Blood Count 4.84 10^6/ul (4.00-5.40); Red Cell Distribution Width 15 % (10.5-15); White Blood Count 8.8 10^3/ul (3.5-10.8)
[2018-07-26 22:35] LABS: ALT 13 U/L (7-52); AST 24 U/L (13-39); Albumin 4.6 g/dL (3.2-5.2); Albumin/Globulin Ratio 1.4 (1-3); Alkaline Phosphatase 51 U/L (34-104); Anion Gap 15 mmol/L (2-11); BUN/Creatinine Ratio 15.4 (8-20); Blood Urea Nitrogen 12 mg/dL (6-24); CO2 Carbon Dioxide 24 mmol/L (22-32); Calcium 10.1 mg/dL (8.6-10.3); Chloride 98 mmol/L (101-111); EGFR African American 136.3 (>60); EGFR Non-African American 112.6 (>60); Globulin 3.3 g/dL (2-4); Glucose 76 mg/dL (70-100); Sodium 137 mmol/L (135-145); Total Protein 7.9 g/dL (6.4-8.9)
[2018-07-26 23:01] LABS: Acetaminophen < 15 mcg/mL; Alcohol < 10 mg/dL (<10); Salicylate < 2.50 mg/dL (<30)
[2018-07-26 23:16] LABS: TSH (Thyroid Stimulating Horm) 0.11 mcIU/mL (0.34-5.60)
[2018-07-27] MEDS ORDERED: HYDROcodone/ACETAMIN 5-325 MG* 1 TAB PO ONE (00:51)
[2018-07-27 01:44] VITALS: BP 95/59
== END 2018-07-27 01:40 | disposition home or self-care (01) ==
LOC: ED 19:44
DX: G89.29 Other chronic pain (principal); M54.9 Dorsalgia, unspecified; F17.210 Nicotine dependence, cigarettes, uncomplicated
CPT/HCPCS: 36415; 80053; 80320; 80329; 84443; 85025; 96374; 99285; A9270-GY; G0480

== ENCOUNTER 2018-10-23 11:19 | Emergency (ER) | payer OTHER ==
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
[2018-10-23 13:03] VITALS: BP 000/00
== END 2018-10-23 13:02 | disposition home or self-care (01) ==
LOC: ED 11:19
DX: M54.2 Cervicalgia (principal); G47.30 Sleep apnea, unspecified; H54.8 Legal blindness, as defined in USA; F41.9 Anxiety disorder, unspecified; F17.210 Nicotine dependence, cigarettes, uncomplicated
CPT/HCPCS: 72125; 99282

== ENCOUNTER 2018-10-25 14:57 | Emergency (ER) | payer OTHER ==
[2018-10-25] MEDS ORDERED: Ketorolac INJ* 30 MG/ML 1 ML VIAL IV PUSH ONE (17:26)
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
[2018-10-25 17:52] LABS: ABS Basophils 0.1 10^3/ul (0-0.2); ABS Eosinophils 0.3 10^3/ul (0-0.6); ABS Monocytes 0.5 10^3/ul (0-0.8); ABS Neutrophils 3.3 10^3/ul (1.5-7.7); Eosinophil % 4.3 %; Hematocrit 35 % (42-52); Hemoglobin 11.7 g/dL (14.0-18.0); Lymphocyte % 32.7 %; Mean Corpuscular HGB Conc 33 g/dL (31-36); Mean Corpuscular Hemoglobin 29 pg (27-31); Mean Corpuscular Volume 87 fL (80-94); Mean Platelet Volume 6.9 fL (7.4-10.4); Platelet Count 297 10^3/uL (150-450); Red Blood Count 4.05 10^6 /uL (4.18-5.48); Red Cell Distribution Width 14 % (10.5-15); White Blood Count 6.1 10^3/uL (3.5-10.8)
[2018-10-25 18:01] LABS: Albumin/Globulin Ratio 1.3 (1-3); C Reactive Protein 11.24 mg/L (<8.01); Calcium 9.5 mg/dL (8.6-10.3); EGFR Non-African American 129.7 (>60); Globulin 3.2 g/dL (2-4); Potassium 3.7 mmol/L (3.5-5.0); Total Bilirubin 0.3 mg/dL (0.2-1.0); Total Protein 7.2 g/dL (6.4-8.9)
[2018-10-25 19:15] VITALS: BP 133/89
[2018-10-25 19:20] LABS: Erythrocyte Sed Rate 11 mm/Hr (0-14)
== END 2018-10-25 19:09 | disposition home or self-care (01) ==
LOC: ED 14:57
DX: M60.9 Myositis, unspecified (principal); F17.210 Nicotine dependence, cigarettes, uncomplicated
CPT/HCPCS: 36415; 72141; 80053; 83519; 85025; 85652; 86140; 86618; 87040; 96374; 99282; J1885

== ENCOUNTER 2018-11-07 07:14 | Emergency (ER) | payer OTHER ==
[2018-11-07 07:24] VITALS: BP 117/77
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
[2018-11-07] MEDS ORDERED: Amoxicillin/Clavulanate TAB* 875 MG PO ONE (07:40)
[2018-11-07] MEDS ORDERED: Ciproflox/Dexameth OTIC.SUSP* 7.5 ML BTL RIGHT EAR ONE (07:41)
[2018-11-07] MEDS ORDERED: Acetaminophen TAB* 325 MG PO ONE (07:41)
== END 2018-11-07 08:10 | disposition home or self-care (01) ==
LOC: ED 07:14
DX: H66.91 Otitis media, unspecified, right ear (principal); H60.91 Unspecified otitis externa, right ear; F17.210 Nicotine dependence, cigarettes, uncomplicated
CPT/HCPCS: 99282; A9270-GY

== ENCOUNTER 2019-04-17 06:08 | Emergency (ER) | payer OTHER ==
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
[2019-04-17 07:44] LABS: ABS Basophils 0.1 10^3/ul (0-0.2); ABS Eosinophils 0.1 10^3/ul (0-0.6); ABS Lymphocytes 1.3 10^3/ul (1.0-4.8); ABS Monocytes 0.5 10^3/ul (0-0.8); ABS Neutrophils 10.3 10^3/ul (1.5-7.7); Eosinophil % 0.7 %; Hematocrit 38 % (42-52); Hemoglobin 12.9 g/dL (14.0-18.0); Lymphocyte % 10.3 %; Mean Corpuscular HGB Conc 34 g/dL (31-36); Mean Corpuscular Hemoglobin 30 pg (27-31); Mean Corpuscular Volume 88 fL (80-94); Mean Platelet Volume 7.6 fL (7.4-10.4); Platelet Count 214 10^3/uL (150-450); Red Blood Count 4.38 10^6 /uL (4.18-5.48); Red Cell Distribution Width 15 % (10-15); White Blood Count 12.2 10^3/uL (3.5-10.8)
[2019-04-17 08:01] LABS: Albumin 4.3 g/dL (3.2-5.2); Albumin/Globulin Ratio 1.4 (1-3); BUN/Creatinine Ratio 29.2 (8-20); Calcium 9.8 mg/dL (8.6-10.3); EGFR African American 148.6 (>60); EGFR Non-African American 122.8 (>60); Globulin 3.1 g/dL (2-4); Magnesium 1.9 mg/dL (1.9-2.7); Potassium 3.8 mmol/L (3.5-5.0); Total Bilirubin 0.4 mg/dL (0.2-1.0); Total Protein 7.4 g/dL (6.4-8.9)
[2019-04-17] MEDS ORDERED: NS 0.9% 1000 ML** 1,000 ML IV ONE ×2 (08:23→08:35)
[2019-04-17 10:43] LABS: Urine Appearance Cloudy; Urine Bacteria Absent (Absent); Urine Bilirubin Negative (Negative); Urine Blood Negative (Negative); Urine Color Amber; Urine Glucose Negative (Negative); Urine Ketones Trace (Negative); Urine Nitrite Negative (Negative); Urine Protein 1+(30 mg/dL) (Negative); Urine Red Blood Cell 2+(6-10/hpf) (Absent); Urine Specific Gravity 1.021 (1.010-1.030); Urine Squamous Epithelial Cell Present (Absent); Urine Urobilinogen Negative (Negative); Urine White Blood Cell Trace(0-5/hpf) (Absent)
[2019-04-17 10:54] VITALS: BP 116/70
== END 2019-04-17 10:51 | disposition left against medical advice (07) ==
LOC: ED 06:08
DX: Z04.3 Encounter for examination and observation following other accident (principal); R79.89 Other specified abnormal findings of blood chemistry; F41.9 Anxiety disorder, unspecified; F17.210 Nicotine dependence, cigarettes, uncomplicated; W19.XXXA Unspecified fall, initial encounter; Y92.89 Other specified places as the place of occurrence of the external cause
CPT/HCPCS: 36415; 80053; 81003; 81015; 82550; 83605; 83735; 85025; 87086; 96360; 96361; 99283

== ENCOUNTER 2019-04-29 13:44 | Emergency (ER) | payer OTHER ==
[2019-04-29] MEDS ORDERED: Oxymorphone (NF) 10 MG TAB PO ONE (13:57)
[2019-04-29] MEDS ORDERED: LORazepam TAB(*) 1 MG PO ONE (13:58)
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
[2019-04-29] MEDS ORDERED: Oxymorphone IR (NF) 5 MG TAB PO ONE (15:00)
--- NOTE | 2019-04-30 06:28 | ED ---
Progress - Progress Note Progress Note: Patient is a sign out at 22:00 on 04/29/[address] Flash Luther MD to Dr. Flash Tarango MD at shift change, pending evaluation and disposition. Patient is a sign out at 07:00 on 04/30/[address] Flash Tarango MD to Dr. Rosalva Mckeon MD at shift change, pending re-evaluation and disposition by Dr. Jose Roberto Cormier. - Consult/PCP Time Called: 19:40 Course/Dx - Course Course Of Treatment: Patient is a sign out at 22:00 on 04/29/[address] Flash Luther MD to Dr. Flash Tarango MD at shift change, pending evaluation and disposition. Patient is a sign out at 07:00 on 04/30/[address] Flash Tarango MD to Dr. Rosalva Mckeon MD at shift change, pending re- evaluation and disposition by Dr. Jose Roberto Cormier. - Diagnoses Provider Diagnoses: Chronic back pain Discharge ED - Sign-Out/Discharge Documenting (check all that apply): Sign-Out Patient Signing out patient TO: Rosalva Mckeon - 07:00 on 04/30/19 - Discharge Plan Condition: Stable Prescriptions: HYDROmorphone TAB* [Dilaudid TAB*] 2 mg PO Q6H PRN #50 tab MDD 4 PRN Reason: Pain - Severe HYDROmorphone TAB* [Dilaudid TAB*] 4 mg PO Q6H PRN #50 tab MDD 4 PRN Reason: Pain - Severe LORazepam TAB(*) [Ativan TAB(*)] 1 mg PO Q6H PRN #30 tab MDD 4 PRN Reason: Pain LORazepam TAB(*) [Ativan TAB(*)] 1 mg PO Q6H PRN #30 tab MDD 4 PRN Reason: Pain LORazepam TAB(*) [Ativan TAB(*)] 1 mg PO Q6H PRN #30 tab MDD 4 PRN Reason: Pain Oxycodone HCl/Acetaminophen [Percocet 7.5-325 mg Tablet] 1 each PO Q6HR PRN #50 tablet MDD 4 PRN Reason: Pain - Severe Patient Education Materials: Back Pain (ED) Referrals: Carlos May MD [Primary Care Provider] - Additional Instructions: Follow up with Dr. Midura in 1-3 days. Return to the emergency department with any new or worsening symptoms - Attestation Statements Document Initiated by Scribe: Yes Documenting Scribe: Janet Lockwood Provider For Whom Scribe is Documenting (Include Credential): Flash Tarango MD Scribe Attestation: Janet Fowler, scribed for Flash Tarango MD on 04/30/19 at 0628. Status of Scribe Document: Ready
--- NOTE | 2019-04-30 07:17 | ED ---
Progress - Progress Note Progress Note: Pt is a signout from Dr. Tarango at 0700 on 04/30/19 pending E. Re-Evaluation - Re-Evaluation 1st re-eval Re-Evaluation Time: 08:00 Change: Unchanged Comment: As per Dr. Cormier, pt does not meet criteria for admission, and can be d /c'ed home. will discuss with patient 2nd re-eval Re-Evaluation Time: 08:24 Change: Unchanged Comment: I-STOP reviewed. #: [id number]. Our pharmacy does not carry Dilaudid, which is why it was not filled and sent to [facility] instead. [facility] is not open until 9am. Dr. Santacruz discussed with [facility] regarding ongoing care. Mental health will talk with pharmacy regarding ?fill, cost. d/w pt regarding suboxone Third Eval Re-Evaluation Time: 10:02 Comment: Pharmacist is not comfortable dispensing Dilaudid. Out of pocket $50. Dr. Santacruz spoke with pt regarding suboxone - pt in agreement. Will give suboxone 8mg here now - monitor 2 hours. If pt tolerates, will discharge with Rx and make f/u appt with [facility] Fourth Eval Re-Evaluation Time: 12:54 Comment: Pt able to have an appt at [facility] at 9:00 , 05/02/19. Dr. Cormier working on making sure his insurance will pay for suboxone. Archie from will be calling to schedule the appt at [facility] via front end technician. Fifth Eval Re-Evaluation Time: 13:45 Comment: Dr. Cormier unable to get suboxone Rx to go through related to Dr. Ponce. He conferred with pharmacy - gave verbal script and sent paper copy to cover. pt comfortable and in agreement with plan. will be discharge Course/Dx - Diagnoses Provider Diagnoses: Chronic back pain Discharge ED - Sign-Out/Discharge Documenting (check all that apply): Patient Departure, Receiving Sign-Out Receiving patient FROM: Flash Tarango - Discharge Plan Condition: Stable Disposition: HOME Prescriptions: Buprenorp/Nalox 8-2 MG SL TAB [Suboxone 8-2 mg SL TAB*] 2 tab SL DAILY #6 tab.sl Buprenorp/Nalox 8-2 MG SL TAB [Suboxone 8-2 mg SL TAB*] 2 tab.sl SL DAILY #6 tab.sl MDD 16mg Buprenorp/Nalox 8-2 MG SL TAB [Suboxone 8-2 mg SL TAB*] 2 tab SL DAILY #4 tab.sl MDD 16 Buprenorp/Nalox 8-2 MG SL TAB [Suboxone 8-2 mg SL TAB*] 2 tab.sl SL DAILY #4 tab.sl HYDROmorphone TAB* [Dilaudid TAB*] 2 mg PO Q6H PRN #50 tab MDD 4 PRN Reason: Pain - Severe HYDROmorphone TAB* [Dilaudid TAB*] 4 mg PO Q6H PRN #50 tab MDD 4 PRN Reason: Pain - Severe LORazepam TAB(*) [Ativan TAB(*)] 1 mg PO Q6H PRN #30 tab MDD 4 PRN Reason: Pain LORazepam TAB(*) [Ativan TAB(*)] 1 mg PO Q6H PRN #30 tab MDD 4 PRN Reason: Pain LORazepam TAB(*) [Ativan TAB(*)] 1 mg PO Q6H PRN #30 tab MDD 4 PRN Reason: Pain Oxycodone HCl/Acetaminophen [Percocet 7.5-325 mg Tablet] 1 each PO Q6HR PRN #50 tablet MDD 4 PRN Reason: Pain - Severe Patient Education Materials: Back Pain (ED) Referrals: Carlos May MD [Primary Care Provider] - [facility],. [[employer], APPLICATION, OTHER] - Additional Instructions: Follow up with Dr. May in 1-3 days. Return to the emergency department with any new or worsening symptoms - Billing Disposition and Condition Condition: STABLE Disposition: Home - Attestation Statements Document Initiated by Scribe: Yes Documenting Scribe: Tierra Melendrez Provider For Whom Amelia is Documenting (Include Credential): Rosalva Mckeon MD. Scribe Attestation: Tierra Fowler, scribed for Rosalva Mckeon MD. on 04/30/19 at 1409. Scribe Documentation Reviewed: Yes Provider Attestation: The documentation as recorded by the scribe, Tierra Melendrez accurately reflects the service I personally performed and the decisions made by me, Rosalva Mckeon MD. Status of Scribe Document: Viewed Procedures - Sedation Patient Received Moderate/Deep Sedation with Procedure: No
[2019-04-30] MEDS ORDERED: Buprenorp/Nalox 8-2 MG SL TAB PO ONE (10:03)
--- NOTE | 2019-04-30 10:16 | PN ---
ED Psychiatric Progress Note Date of Service: 04/30/19 Subjective: ED day #1 for this 39 y.o. single, white male with a history of opioid and benzodiazapine dependence, chronic pain and affective problems who presented to the ER in acute pain, reporting that he had dropped his oxymorphone in a nenana on 04/17 and lost the remainder of that supply, which was dispensed on 04/12. Dr. Luther gave him scripts for Dilaudid and ativan, to replace his allegedly lost meds, however, our pharmacy does not carry Dilaudid. When the patient was informed about this he made a suicidal statement and was evaluated by the MH service. He was offered psychiatric admission but declined this b/c we could not guarantee that we would give him opioids. This morning we spoke with the pharmacist at [facility], who indicated that Mr. Thomas often runs out of narcotic meds early and can be belligerent with them during those episodes. They are uncomfortable filling narcotics until his next scheduled dispensing date, which is 05/10. Harry is confronted with this information and offered suboxone therapy, which he could continue to receive through the [facility] clinic. I spoke with Re[facility] Director, Dr. Nay Camara, who recommended an induction dose of 8/2mg. Harry agrees with this and will receive this here in the ED. Objective: middle aged white male with chronic-appearing traumatic left eye lesion, appears older than stated age; he is is calm and cooperative; denies SI/HI; willing to try Suboxone. Assessment: Opioid dependence Plan: Will give Suboxone 8/2mg PO times one. Will reassess at noon. Likely d/c with f/u at [facility]. Vital Signs Temp Pulse Resp BP Pulse Ox 97.7 F 99 17 106/81 97 04/30/19 06:58 04/30/19 06:58 04/30/19 06:58 04/30/19 06:58 04/30/19 06:58
[2019-04-30] MEDS ORDERED: Buprenorp/Nalox 8-2 MG SL TAB PO SCH (13:00)
[2019-04-30 14:08] VITALS: BP 110/71
--- NOTE | 2019-04-30 17:05 | PN ---
ED Psychiatric Progress Note Date of Service: 04/30/19 Harry felt well after receiving a second dose of Suboxone 8/2mg and reported his willingness to f/u with the [facility] clinic for opioid dependence treatment. His intake there is schedule for May 02 at 09:00. He was given a paper Rx for 2 days of Suboxone 8/2mg two films SL qday ([facility] system for Suboxone not responding). After discharge I received a call from [facility] requesting prior authorization because this dose of Suboxone exceeded the CDC recommendation of 90mg morphine equivalents per day. I filed a prior authorization request on [employer] and called the patient at his listed phone number of [phone], however, the number is not in service. Vital Signs Temp Pulse Resp BP Pulse Ox 98.6 F 80 16 110/71 97 04/30/19 14:08 04/30/19 14:08 04/30/19 14:08 04/30/19 14:08 04/30/19 14:08
== END 2019-04-30 14:08 | disposition home or self-care (01) ==
LOC: ED 13:44
DX: M54.9 Dorsalgia, unspecified (principal); G89.29 Other chronic pain; F41.9 Anxiety disorder, unspecified; F17.210 Nicotine dependence, cigarettes, uncomplicated; Z90.89 Acquired absence of other organs
CPT/HCPCS: 99285; A9270-GY

== ENCOUNTER 2019-07-15 06:14 | Emergency (ER) | payer OTHER ==
[2019-07-15 07:01] LABS: ABS Basophils 0.1 10^3/ul (0-0.2); ABS Eosinophils 0.4 10^3/ul (0-0.6); ABS Lymphocytes 2.4 10^3/ul (1.0-4.8); ABS Monocytes 0.6 10^3/ul (0-0.8); Eosinophil % 4.9 %; Hematocrit 37 % (42-52); Hemoglobin 12.5 g/dL (14.0-18.0); Lymphocyte % 32.7 %; Mean Corpuscular HGB Conc 34 g/dL (31-36); Mean Corpuscular Hemoglobin 30 pg (27-31); Mean Corpuscular Volume 88 fL (80-94); Mean Platelet Volume 7.3 fL (7.4-10.4); Platelet Count 294 10^3/uL (150-450); Red Blood Count 4.21 10^6 /uL (4.18-5.48); Red Cell Distribution Width 15 % (10-15); White Blood Count 7.5 10^3/uL (3.5-10.8)
[2019-07-15 07:17] LABS: ALT 8 U/L (7-52); AST 15 U/L (13-39); Albumin/Globulin Ratio 1.4 (1-3); Alkaline Phosphatase 46 U/L (34-104); Anion Gap 7 mmol/L (2-11); BUN/Creatinine Ratio 18.8 (8-20); Blood Urea Nitrogen 12 mg/dL (6-24); CO2 Carbon Dioxide 27 mmol/L (22-32); Calcium 8.6 mg/dL (8.6-10.3); Chloride 105 mmol/L (101-111); EGFR African American 170.3 (>60); EGFR Non-African American 140.7 (>60); Globulin 2.8 g/dL (2-4); Glucose 89 mg/dL (70-100); Magnesium 1.6 mg/dL (1.9-2.7); Potassium 2.9 mmol/L (3.5-5.0); Sodium 139 mmol/L (135-145); Total Protein 6.8 g/dL (6.4-8.9)
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
[2019-07-15 07:39] LABS: Acetaminophen < 15 mcg/mL; Alcohol 10 mg/dL (<10); Salicylate < 2.50 mg/dL (<30)
[2019-07-15 08:07] LABS: Creatine Kinase 216 U/L (10-223)
[2019-07-15 08:20] LABS: Urine Appearance Clear; Urine Bilirubin Negative (Negative); Urine Blood Negative (Negative); Urine Color Yellow; Urine Glucose Negative (Negative); Urine Ketones Negative (Negative); Urine Nitrite Negative (Negative); Urine Protein Negative (Negative); Urine Specific Gravity 1.016 (1.010-1.030); Urine Urobilinogen Negative (Negative)
[2019-07-15 08:39] LABS: Urine Benzodiazepine Screen Presumptive Positive (None Detect); Urine Opiates Screen Presumptive Positive (None Detect)
[2019-07-15 12:21] VITALS: BP 117/96
== END 2019-07-15 12:20 | disposition home or self-care (01) ==
LOC: ED 06:14
DX: R41.82 Altered mental status, unspecified (principal); F14.90 Cocaine use, unspecified, uncomplicated; F11.90 Opioid use, unspecified, uncomplicated; F19.90 Other psychoactive substance use, unspecified, uncomplicated; Z91.013 Allergy to seafood; F17.210 Nicotine dependence, cigarettes, uncomplicated
CPT/HCPCS: 36415; 70450; 80053; 80307; 80320; 80329; 81003; 82140; 82550; 83605; 83735; 84484; 85025; 99282; G0480

== ENCOUNTER 2022-04-06 18:12 | Inpatient (IN) ==
[2022-04-06 21:33] LABS: Activated Partial Thrombo Time 34.6 seconds (26.0-38.0); INR 1.45 (0.89-1.11)
[2022-04-06 21:34] LABS: Hematocrit 34 % (42-52); Hemoglobin 10.8 g/dL (14.0-18.0); Mean Corpuscular HGB Conc 32 g/dL (31-36); Mean Corpuscular Hemoglobin 28 pg (27-31); Mean Corpuscular Volume 87 fL (80-94); Mean Platelet Volume 7.8 fL (7.4-10.4); Platelet Count 323 10^3/uL (150-450); Red Blood Count 3.91 10^6 /uL (4.18-5.48); Red Cell Distribution Width 15 % (10-15); White Blood Count 48.3 10^3/uL (3.5-10.8)
[2022-04-06 21:46] LABS: Albumin 3.5 g/dL (3.2-5.2); Albumin/Globulin Ratio 0.9 (1-3); C Reactive Protein 179.58 mg/L (<8.01); Calcium 7.9 mg/dL (8.6-10.3); Globulin 3.9 g/dL (2-4); Potassium 4.3 mmol/L (3.5-5.0); Total Bilirubin 0.4 mg/dL (0.2-1.0); Total Protein 7.4 g/dL (6.4-8.9); eGFR CKD-EPI 28.6 (>60)
[2022-04-06] MEDS ORDERED: Piperacillin/Tazobac ADVAN 3.375 GM in NS 0.9% 100 ml BAG 100 ML IVPB ONE (21:53)
[2022-04-06] MEDS ORDERED: Vancomycin 1,000 MG in NS 0.9% 250 ml 250 ML IVPB ONE (21:53)
[2022-04-06] MEDS: Lactated Ringers 1000 ml BAG 1,000 ML IV SCH (22:04)
[2022-04-06 22:10] LABS: ABS Basophils 0.1 10^3/ul (0-0.2); ABS Eosinophils 0.2 10^3/ul (0-0.6); ABS Lymphocytes 2.9 10^3/ul (1.0-4.8); ABS Monocytes 1.9 10^3/ul (0-0.8); ABS Neutrophils 43.3 10^3/ul (1.5-7.7); Eosinophil % 0.3 %
[2022-04-06 23:39] LABS: High Sensitivity Troponin 1 Hr 11 pg/mL (<20)
[2022-04-07] MEDS: Lactated Ringers 1000 ml BAG 1,000 ML IV SCH (00:35)
[2022-04-07] MEDS ORDERED: Bupivacaine 0.5% 50 ML MDV VIAL INJ ONE (01:26)
[2022-04-07] MEDS ORDERED: Lactated Ringers 1000 ml BAG 1,000 ML IV ONE (02:35)
[2022-04-07 04:12] LABS: Erythrocyte Sed Rate 50 mm/Hr (0-14)
[2022-04-07] MEDS ORDERED: ZOSYN 3.375 GM x ONE DOSE over 30 miuntes IV (05:00)
[2022-04-07] MEDS ORDERED: Zosyn per Pharmacy NOTE FOLLOW UP SCH (05:00)
[2022-04-07] MEDS ORDERED: Vancomycin per Pharmacy 1 EA NOTE FOLLOW UP SCH (05:00)
[2022-04-07] MEDS: Enoxaparin 30 MG/0.3 ML SYR SUBCUT SCH (05:30)
[2022-04-07] MEDS ORDERED: Vancomycin Random Level NOTE FOLLOW UP ONE (08:46)
[2022-04-07 08:51] LABS: Hematocrit 33 % (42-52); Hemoglobin 10.4 g/dL (14.0-18.0); Mean Corpuscular HGB Conc 31 g/dL (31-36); Mean Corpuscular Hemoglobin 27 pg (27-31); Mean Corpuscular Volume 86 fL (80-94); Mean Platelet Volume 7.7 fL (7.4-10.4); Platelet Count 268 10^3/uL (150-450); Red Blood Count 3.85 10^6 /uL (4.18-5.48); Red Cell Distribution Width 15 % (10-15); White Blood Count 33.9 10^3/uL (3.5-10.8)
[2022-04-07] MEDS ORDERED: Buprenorp/Nalox 8-2 MG FILM SL FILM SCH (09:00)
[2022-04-07] MEDS ORDERED: ZOSYN 3.375 GM Q8H per EXTENDED INFUSION IV SCH (09:30)
[2022-04-07] MEDS ORDERED: Buprenorphine 2 mg SL TAB SL PRN (09:37)
[2022-04-07] MEDS ORDERED: Nicotine GUM 4MG FRUIT FLAVOR PO PRN (09:38)
[2022-04-07 09:43] LABS: Albumin 2.9 g/dL (3.2-5.2); Albumin/Globulin Ratio 0.9 (1-3); Calcium 7.9 mg/dL (8.6-10.3); Globulin 3.2 g/dL (2-4); Potassium 3.5 mmol/L (3.5-5.0); Total Bilirubin 0.4 mg/dL (0.2-1.0); Total Protein 6.1 g/dL (6.4-8.9); eGFR CKD-EPI 44.3 (>60)
[2022-04-07 11:21] LABS: Vancomycin Random 11.1 mcg/mL
[2022-04-07] MEDS ORDERED: Nicotine Lozenge mini 4 MG LOZNG.MINI MT PRN (15:39)
[2022-04-07] MEDS ORDERED: Potassium Chlor 20 meq TAB.ER PO ONE (15:52)
[2022-04-07 16:56] LABS: Urine Appearance Clear; Urine Bilirubin Negative (Negative); Urine Blood 1+ (Negative); Urine Color Yellow; Urine Glucose Negative (Negative); Urine Ketones Negative (Negative); Urine Nitrite Negative (Negative); Urine Protein Negative (Negative); Urine Specific Gravity 1.013 (1.002-1.030); Urine Urobilinogen Negative (Negative)
[2022-04-07 17:04] LABS: Urine Bacteria Absent (Absent); Urine Red Blood Cell Trace(0-2/hpf) (Absent); Urine White Blood Cell Trace(0-5/hpf) (Absent)
[2022-04-07 17:26] LABS: Urine Benzodiazepine Screen Presumptive Positive (None Detect); Urine Cannabinoids Screen None Detected (None Detect); Urine Opiates Screen None Detected (None Detect)
[2022-04-07] MEDS ORDERED: Vancomycin 1000 MG in NS 0.9% 250 ML IVPB ONE (18:00)
[2022-04-07] MEDS: Nicotine PATCH 21 MG/24 HR PATCH TRANSDERM SCH (18:04)
[2022-04-07] MEDS ORDERED: Vancomycin 1000 MG in NS 0.9% 250 ML IVPB SCH (21:00)
[2022-04-08] MEDS ORDERED: Vancomycin Random Level NOTE FOLLOW UP ONE (06:00)
[2022-04-08 06:16] LABS: ABS Basophils 0.1 10^3/ul (0-0.2); ABS Eosinophils 0.2 10^3/ul (0-0.6); ABS Lymphocytes 1.8 10^3/ul (1.0-4.8); ABS Monocytes 0.5 10^3/ul (0-0.8); ABS Neutrophils 12.5 10^3/ul (1.5-7.7); Eosinophil % 1.1 %; Hematocrit 34 % (42-52); Hemoglobin 10.7 g/dL (14.0-18.0); Lymphocyte % 12.1 %; Mean Corpuscular HGB Conc 32 g/dL (31-36); Mean Corpuscular Hemoglobin 27 pg (27-31); Mean Corpuscular Volume 87 fL (80-94); Mean Platelet Volume 7.7 fL (7.4-10.4); Platelet Count 331 10^3/uL (150-450); Red Blood Count 3.91 10^6 /uL (4.18-5.48); Red Cell Distribution Width 15 % (10-15); White Blood Count 15.1 10^3/uL (3.5-10.8)
[2022-04-08 06:38] LABS: Albumin 2.8 g/dL (3.2-5.2); Albumin/Globulin Ratio 0.9 (1-3); Calcium 8.5 mg/dL (8.6-10.3); Globulin 3.2 g/dL (2-4); Magnesium 1.5 mg/dL (1.9-2.7); Potassium 4.4 mmol/L (3.5-5.0); Total Bilirubin 0.3 mg/dL (0.2-1.0); Vancomycin Random 9.9 mcg/mL; eGFR CKD-EPI 84.3 (>60)
[2022-04-08] MEDS ORDERED: Magnesium Sulfate 2 gm BAG 2 GM/50 ML BAG IVPB ONE (08:05)
[2022-04-08] MEDS: Enoxaparin 30 MG/0.3 ML SYR SUBCUT SCH (09:07)
[2022-04-08] MEDS: Nicotine PATCH 21 MG/24 HR PATCH TRANSDERM SCH (09:07)
[2022-04-08] MEDS: Vancomycin 1000 MG in NS 0.9% 250 ML IVPB SCH ×2 (10:45→21:29)
[2022-04-08] MEDS ORDERED: HYDROmorphone 0.5 MG/0.5 ML SYRINGE IV SLOW PU PRN (15:00)
[2022-04-08] MEDS ORDERED: Iohexol 350 (CONTRAST) 500 ML MDV IV ONE (16:49)
[2022-04-08] MEDS: Erythromycin OPTH OINT APPLIC OINT LEFT EYE SCH (21:18)
[2022-04-09 06:17] LABS: ABS Basophils 0.1 10^3/ul (0-0.2); ABS Eosinophils 0.1 10^3/ul (0-0.6); ABS Lymphocytes 1.9 10^3/ul (1.0-4.8); ABS Monocytes 0.3 10^3/ul (0-0.8); ABS Neutrophils 9.3 10^3/ul (1.5-7.7); Eosinophil % 1.3 %; Hematocrit 37 % (42-52); Hemoglobin 11.9 g/dL (14.0-18.0); Lymphocyte % 15.9 %; Mean Corpuscular HGB Conc 32 g/dL (31-36); Mean Corpuscular Hemoglobin 28 pg (27-31); Mean Corpuscular Volume 87 fL (80-94); Mean Platelet Volume 7.5 fL (7.4-10.4); Platelet Count 341 10^3/uL (150-450); Red Blood Count 4.32 10^6 /uL (4.18-5.48); Red Cell Distribution Width 15 % (10-15); White Blood Count 11.7 10^3/uL (3.5-10.8)
[2022-04-09 06:39] LABS: Albumin 3.2 g/dL (3.2-5.2); Albumin/Globulin Ratio 0.8 (1-3); Calcium 9.1 mg/dL (8.6-10.3); Globulin 4.1 g/dL (2-4); Magnesium 1.6 mg/dL (1.9-2.7); Potassium 4.8 mmol/L (3.5-5.0); Total Bilirubin 0.3 mg/dL (0.2-1.0); Total Protein 7.3 g/dL (6.4-8.9); eGFR CKD-EPI 115.6 (>60)
[2022-04-09] MEDS ORDERED: Magnesium Sulfate 2 gm BAG 2 GM/50 ML BAG IVPB ONE (08:05)
[2022-04-09] MEDS: Enoxaparin 30 MG/0.3 ML SYR SUBCUT SCH (08:21)
[2022-04-09] MEDS: Nicotine PATCH 21 MG/24 HR PATCH TRANSDERM SCH ×2 (08:21→12:26)
[2022-04-09] MEDS: Vancomycin 1000 MG in NS 0.9% 250 ML IVPB SCH ×2 (09:43→22:01)
[2022-04-09] MEDS ORDERED: Magnesium Hydroxide LIQ 30 ML UDC PO PRN (11:31)
[2022-04-09] MEDS ORDERED: Senna TAB 8.6 mg TAB PO PRN (11:31)
[2022-04-09] MEDS: Erythromycin OPTH OINT APPLIC OINT LEFT EYE SCH (22:00)
[2022-04-10 06:54] LABS: Hematocrit 39 % (42-52); Hemoglobin 12.6 g/dL (14.0-18.0); Mean Corpuscular HGB Conc 32 g/dL (31-36); Mean Corpuscular Hemoglobin 28 pg (27-31); Mean Corpuscular Volume 86 fL (80-94); Mean Platelet Volume 7.1 fL (7.4-10.4); Platelet Count 374 10^3/uL (150-450); Red Blood Count 4.54 10^6 /uL (4.18-5.48); Red Cell Distribution Width 15 % (10-15); White Blood Count 8.8 10^3/uL (3.5-10.8)
[2022-04-10 07:58] LABS: Calcium 9.2 mg/dL (8.6-10.3); Magnesium 1.8 mg/dL (1.9-2.7); eGFR CKD-EPI 111.5 (>60)
[2022-04-10 08:16] VITALS: BP 127/91
[2022-04-10] MEDS ORDERED: Enoxaparin 40 MG/0.4 ML SYR SUBCUT SCH (09:00)
[2022-04-10] MEDS ORDERED: Vancomycin Trough Check NOTE FOLLOW UP ONE (09:30)
[2022-04-10] MEDS: Nicotine PATCH 21 MG/24 HR PATCH TRANSDERM SCH (09:54)
[2022-04-10] MEDS: Vancomycin 1000 MG in NS 0.9% 250 ML IVPB SCH (10:15)
[2022-04-10] MEDS ORDERED: Buprenorp/Nalox 4-1 MG FILM SL FILM SCH (11:32)
[2022-04-10] MEDS ORDERED: Anidulafungin 200 MG in NS 0.9% 250 ml 200 ML IVPB ONE (12:00)
[2022-04-11] MEDS ORDERED: Anidulafungin 100 MG in NS 0.9% 100 ml BAG 100 ML IVPB SCH (12:00)
== END 2022-04-10 15:10 | disposition left against medical advice (07) | DRG 710 ==
LOC: ED 18:12 → EDHOLD 04-07 03:18 → SUATTDRO 04-07 03:18 → SSU 04-07 21:02
PROVIDERS: ADMIT Hospitalist; ATTEND Student in an Organized Health Care Education/Training Program

== ENCOUNTER 2022-04-12 16:51 | Inpatient (IN) ==
[2022-04-12] MEDS ORDERED: Anidulafungin 200 MG in NS 0.9% 250 ml 200 ML IVPB ONE (18:20)
[2022-04-12] MEDS ORDERED: Vancomycin per Pharmacy 1 EA NOTE FOLLOW UP PRN (18:48)
[2022-04-12 18:59] LABS: ABS Eosinophils 0.2 10^3/ul (0-0.6); ABS Lymphocytes 1.9 10^3/ul (1.0-4.8); ABS Monocytes 0.4 10^3/ul (0-0.8); ABS Neutrophils 4.1 10^3/ul (1.5-7.7); Eosinophil % 3.5 %; Hematocrit 35 % (42-52); Lymphocyte % 28.3 %; Mean Corpuscular HGB Conc 32 g/dL (31-36); Mean Corpuscular Hemoglobin 28 pg (27-31); Mean Corpuscular Volume 87 fL (80-94); Mean Platelet Volume 7.2 fL (7.4-10.4); Platelet Count 397 10^3/uL (150-450); Red Blood Count 3.98 10^6 /uL (4.18-5.48); Red Cell Distribution Width 15 % (10-15); White Blood Count 6.7 10^3/uL (3.5-10.8)
[2022-04-12] MEDS ORDERED: Vancomycin 1000 MG in NS 0.9% 250 ML IVPB ONE (19:00)
[2022-04-12] MEDS ORDERED: Vancomycin 1,250 MG in NS 0.9% 250 ml 250 ML IVPB SCH (19:00)
[2022-04-12 19:32] LABS: Albumin 3.5 g/dL (3.2-5.2); Albumin/Globulin Ratio 0.9 (1-3); C Reactive Protein 13.48 mg/L (<8.01); Calcium 8.7 mg/dL (8.6-10.3); Globulin 3.9 g/dL (2-4); Potassium 3.9 mmol/L (3.5-5.0); Total Bilirubin 0.4 mg/dL (0.2-1.0); Total Protein 7.4 g/dL (6.4-8.9); eGFR CKD-EPI 111.1 (>60)
[2022-04-12 19:38] VITALS: BP 108/74
[2022-04-13] MEDS ORDERED: Vancomycin 1000 MG in NS 0.9% 250 ML IVPB SCH (05:00)
[2022-04-13] MEDS ORDERED: Nicotine PATCH 21 MG/24 HR PATCH TRANSDERM SCH (09:00)
[2022-04-13] MEDS ORDERED: Vancomycin Trough Check NOTE FOLLOW UP ONE (20:30)
[2022-04-13] MEDS ORDERED: Anidulafungin 100 MG in NS 0.9% 100 ml BAG 100 ML IVPB SCH (21:00)
== END 2022-04-12 22:59 | disposition left against medical advice (07) | DRG 344 ==
LOC: ED 16:51 → EDHOLD 18:10
PROVIDERS: ADMIT Internal Medicine; ATTEND Internal Medicine